=== PATIENT | female | born 1945 | race Caucasian/White ===

== ENCOUNTER → 2020-09-23 09:38 | Outpatient (BNVA) | payer MEDICARE, OTHER, MEDICAID, SELFPAY | PROVIDERS: Referring Provider Nurse Practitioner Family; Visit Provider Internal Medicine | DX: E03.9 Hypothyroidism, unspecified (principal); E05.00 Thyrotoxicosis with diffuse goiter without thyrotoxic crisis or storm; E06.3 Autoimmune thyroiditis; I10 Essential (primary) hypertension; R79.89 Other specified abnormal findings of blood chemistry | CPT/HCPCS: 83516; 84439; 84443; 84480; 86376; 99204 ==

== ENCOUNTER 2020-09-23 10:39 | Outpatient (CLI) | payer MEDICARE, OTHER, MEDICAID, SELFPAY ==
[2020-09-23 12:59] LABS: Thyroid Stimulating Hormone 3.55 uIU/mL (0.27-4.20)
[2020-09-23 18:35] LABS: Free T4 Free Thyroxine 1.79 ng/dL (0.82-1.77)
[2020-09-24 07:57] LABS: T3 Total 138 ng/dL (76-181)
[2020-09-24 13:04] LABS: Thyroid Peroxidase Antobodies 29 IU/mL (<9)
[2020-09-26 22:13] LABS: TSH Receptor Binding Antibody <1.00 IU/L (< OR = 2.00)
== END 2020-09-23 10:40 | disposition home or self-care (01) ==
PROVIDERS: Visit Provider Internal Medicine
DX: E03.9 Hypothyroidism, unspecified (principal); R79.89 Other specified abnormal findings of blood chemistry; E05.00 Thyrotoxicosis with diffuse goiter without thyrotoxic crisis or storm
CPT/HCPCS: 83516; 84439; 84443; 84480; 86376

== ENCOUNTER → 2020-10-27 11:26 | Outpatient (BNVA) | payer MEDICARE, OTHER, MEDICAID, SELFPAY | PROVIDERS: PCP Nurse Practitioner Family; Visit Provider Internal Medicine Cardiovascular Disease | DX: I10 Essential (primary) hypertension (principal); R06.00 Dyspnea, unspecified | CPT/HCPCS: 80048; 83735; 83880 ==

== ENCOUNTER 2020-12-02 12:11 | Outpatient (CLI) | payer MEDICARE, OTHER, MEDICAID, SELFPAY ==
--- NOTE | 2020-12-02 12:22 | USCV_ITS ---
Lenny Myers Age: 75 Gender: F : 1945 Exam Date: 12/02/2020 13:08 Ordering Phys: Irma Mahajan MD ([email or web address]) Technologist: Kylee Arellano [place]am Location[place] [facility] [place]ication: Dyspnea BP: 144 / 89 HR: 60 Rhythm: Sinus Technical Quality: Adequate MEASUREMENTS (Male / Female) Normal Values 2D ECHO LV Diastolic Diameter PLAX 3.6 cm 4.2 - 5.9 / 3.9 - 5.3 cm LV Systolic Diameter PLAX 2.6 cm IVS Diastolic Thickness 1.3 cm 0.6 - 1.0 / 0.6 - 0.9 cm IVS Systolic Thickness 1.3 cm LVPW Diastolic Thickness 1.2 cm 0.6 - 1.0 / 0.6 - 0.9 cm LVPW Systolic Thickness 1.6 cm LVOT Diameter 2.0 cm LV Ejection Fraction 2D Teich 55.2 % LV Ejection Fraction MOD 2C 58.0 % LV Ejection Fraction 2C AL 56.6 % LA Diameter 2.6 cm LA Width 2.5 cm LA Height 3.5 cm RA Width 2.5 cm RA Height 4.0 cm Aorta at Sinotubular Diameter 2.2 cm M-MODE LV Diastolic Diameter MM 4.3 cm 4.2 - 5.9 / 3.9 - 5.3 cm LV Systolic Diameter MM 2.6 cm LV Ejection Fraction MM Teich 69.3 % IVS Diastolic Thickness MM 1.2 cm 0.6 - 1.0 / 0.6 - 0.9 cm IVS Systolic Thickness MM 1.4 cm LVPW Diastolic Thickness MM 0.9 cm 0.6 - 1.0 / 0.6 - 0.9 cm LVPW Systolic Thickness MM 1.1 cm Aortic Annulus Diameter 2.8 cm LA Ao Ratio MM 0.9 MV E Point Septal Separation 0.3 cm DOPPLER AV Peak Velocity 141.0 cm/s LVOT Peak Velocity 99.3 cm/s AV Area Cont Eq vti 2.0 cm squared AV Area Cont Eq pk 2.2 cm squared MV Area PHT 7.9 cm squared Mitral E to A Ratio 1.8 MV E' Velocity 39.5 cm/s Mitral E to MV E' Ratio 10.0 Mitral E to LV E' Lateral Ratio 8.8 Mitral E to LV E' Septal Ratio 11.6 TR Peak Velocity 233.7 cm/s TR Peak Gradient 21.8 mmHg Right Atrial Pressure 3.0 mmHg Pulmonary Artery Systolic Pressu 24.8 mmHg PV Peak Velocity 64.0 cm/s RV Acceleration Time 0.1 s RV Ejection Time 0.3 s RV AcT/ET 0.2 FINDINGS Left Ventricle Normal left ventricular size, increased wall thickness and systolic function with no regional wall motion abnormalities. Left ventricular ejection fraction is estimated at 60 %. Normal diastolic function. Right Ventricle Normal right ventricular size and systolic function. Right Atrium Normal right atrial size. Left Atrium Normal left atrial size. Mitral Valve Mildly thickened mitral valve. No mitral valve stenosis. Trace mitral valve regurgitation. Aortic Valve Aortic valve not well visualized. Probably trileaflet aortic valve. No aortic valve stenosis. No aortic valve regurgitation. Tricuspid Valve Structurally normal tricuspid valve. Trace to mild tricuspid valve regurgitation. Pulmonic Valve Pulmonic valve not well visualized. Trace pulmonary valve regurgitation. Pericardium No pericardial effusion. Aorta Normal size aortic root and proximal ascending aorta. CONCLUSIONS 1. Normal left ventricular size, increased wall thickness and systolic function with no regional wall motion abnormalities. Left ventricular ejection fraction is estimated at 60 %. Normal diastolic function. 2. Normal right ventricular size and systolic function. 3. No significant valvular abnormality. 4. No prior similar studies to compare. Irma Mahajan MD (Electronically Signed) Final Date: 06 December 2020 23:01 S
== END 2020-12-02 12:12 | disposition home or self-care (01) ==
LOC: US 12:12
PROVIDERS: PCP Nurse Practitioner Family; Visit Provider Internal Medicine Cardiovascular Disease
DX: R06.00 Dyspnea, unspecified (principal)
CPT/HCPCS: 93306

== ENCOUNTER 2020-12-22 11:30 | Outpatient (CLI) | payer MEDICARE, OTHER, MEDICAID, SELFPAY ==
[2020-12-22 12:40] LABS: Free T4 Free Thyroxine 1.68 ng/dL (0.82-1.77)
== END 2020-12-22 11:31 | disposition home or self-care (01) ==
PROVIDERS: PCP Nurse Practitioner Family; Visit Provider Internal Medicine
DX: E03.9 Hypothyroidism, unspecified (principal); I10 Essential (primary) hypertension
CPT/HCPCS: 36415; 84439; 99215

== ENCOUNTER → 2022-04-07 13:39 | Outpatient (BNVA) | payer MEDICARE, OTHER, MEDICAID, SELFPAY | PROVIDERS: PCP Nurse Practitioner Family; Visit Provider Nurse Practitioner Family | DX: I10 Essential (primary) hypertension (principal); F17.210 Nicotine dependence, cigarettes, uncomplicated | CPT/HCPCS: 99213 ==

== ENCOUNTER 2022-12-16 11:36 | Emergency (ER) | payer MEDICARE, OTHER, MEDICAID, SELFPAY ==
[2022-12-16] VITALS (52 sets, daily range): BP systolic 164–188; BP diastolic 80–91; PULSE 60–88; RESP 16–29; O2SAT 79–97; BMI 26.4
--- NOTE | 2022-12-16 11:37 | ED_ITS ---
HPI - General Adult General: Chief complaint: Neuro Symptoms/Deficit Stated complaint: POSSIBLE STROKE 10 DAYS AGO Time Seen by Provider: 12/16/22 11:37 History of Present Illness: Ms. Myers is a 77-year-old lady with significant past medical history of CAD, hypertension, diabetes, thyroid disorder presenting to the emergency department for concern for strokelike symptoms. She endorses an episode of acute onset left-sided sharp headache approximately 10 days ago associated with hearing loss in the left ear. She reports that the headache improved however the hearing loss has remained constant. She subsequently has developed left eye blurred vision and headache is returned. Intensity symptoms is moderate. She denies other neurologic symptoms. She denies similar episodes in the past. She was seen at primary care and told to go home to her house and call 911 and be brought here for further evaluation for stroke. No other specific changes in health, exacerbating, or alleviating factors identified. Onset (ago): day(s) Location: head and eyes Severity: moderate Quality: aching Pain Consistency: constant Relieving factors: none Exacerbating factors: none Associated symptoms: Reports headache(s) and other Review of Systems General: Reports: 10 or more systems reviewed and unremarkable except in HPI and below Neuro: Reports: headache(s) PFSH ED PFSH: Medical History Atherosclerosis of coronary artery Benign hypertension COPD (chronic obstructive pulmonary disease) Diabetes Hyperlipidemia Surgical History History of appendectomy History of heart artery stent History of tubal ligation Family History Mother , she at the age of 83 Diabetes Sister , at the age of 87 Cancer pancreatic cancer Sister , at the age of 23 Cancer had ovarian cancer Social History Smoking and tobacco status: current every day smoker cigarettes Packs smoked per day: 1 Alcohol intake: never Current gender identity: Female Female Reproductive History: Spontaneous abortions: No Physical Exam Const: COMMON NORMALS: alert GENERAL APPEARANCE: cooperative and well developed HENMT: COMMON NORMALS: normocephalic, atraumatic, external ears normal, EAC's normal and TM's normal bilaterally HEAD & SCALP: normocephalic and atraumatic EXTERNAL EAR: Yes external ears normal EXTERNAL AUDITORY CANAL: EAC's normal TYMPANIC MEMBRANE: TM's normal bilaterally THROAT: posterior oropharynx normal OTHER: Inflamed appearing symmetric red papular type lesions on the inferior aspect of the tongue. There is no distortion of anatomy or fullness in the inferior structures. Eye: COMMON NORMALS: conjunctivae normal CONJUNCTIVA: Yes conjunctivae normal SCLERA: sclerae normal OTHER: EOM's intact. Normal fluorescein exam. Unable to obtain IOP secondary to equipment problem. Neck/C-Spine: COMMON NORMALS: supple GENERAL: Yes trachea midline Resp: COMMON NORMALS: normal respiratory effort EFFORT & INSPECTION: Yes able to speak in complete sentences Cardio: COMMON NORMALS: regular rate and regular rhythm RATE: regular rate RHYTHM: regular rhythm GI: COMMON NORMALS: Soft to palpation PALPATION: Yes Soft to palpation and No Tenderness to palpation present (GI) Extremity: GENERAL: Yes normal exam except as noted and No edema Neuro: COMMON NORMALS: moves all extremities SENSORIUM/ORIENTATION: Yes alert and No Orientation impaired OTHER: Subjective left eye blurriness and left ear hearing loss. No visual field cut. NIHSS 0 Psych: COMMON NORMALS: mental status grossly normal and Normal thought process present THOUGHT PROCESS: Normal thought process present Course Vital Signs: Vital signs: Vital Signs Pulse Rate 76 12/16/22 15:01 Respiratory Rate 18 12/16/22 15:01 Blood Pressure 179/91 12/16/22 15:45 Pulse Oximetry 96 12/16/22 15:01 Oxygen Delivery Me thod 12/16/22 14:[address] [facility] - General Adult Medical Decision Making 77-year-old lady presenting with headache and visual disturbance starting 10 days ago. Exam as above. Patient is nontoxic. EKG notable for sinus rhythm with left axis deviation and interventricular conduction delay, there is nonspecific ST segment abnormalities, no STEMI. Labs notable for leukocytosis and hemoconcentration. Metabolic panel without acute derangement to explain symptoms. Negative range 2-hour delta troponin. No UTI. Chest x-ray with no lobar consolidation or pneumothorax. CTA demonstrates no intracranial hemorrhage or mass. There is mild to moderate vascular disease without flow-limiting stenosis or acute large vessel occlusion. There are prior strokes. Incidental findings discussed with patient. The patient does have paranasal sinuses with evidence of acute sinusitis. On examination after this finding she does have tenderness on the sinuses and reports perhaps similar symptoms with history of sinusitis years ago. On ophthalmic exam I do not appreciate acute pathology to explain the patient's blurry vision. I was unable to obtain intraocular pressures unfortunately due to equipment issue, however due to duration of symptoms I do not believe the patient has ophthalmologic emergency requiring emergent consult in the emergency department. Patient improved with IV fluids. I do not see any evidence of cavernous sinus thrombosis or deep spreading infection. Plan to treat for sinusitis and have outpatient follow-up with ophthalmology and ENT. The results of ED evaluation were discussed with the patient including prescriptions and/or symptomatic cares (if applicable) including appropriate and responsible use, followup plan, and return precautions. The patient verbalized understanding and felt safe for discharge. Medical Records I reviewed the patient's medical records. Lab Data I reviewed the patient's lab results. 12/16/22 12:02 12/16/22 12:02 Radiology Impressions Chest X-Ray 12/16/22 11:47 IMPRESSION: No acute chest abnormality. Head/Neck CTA 12/16/22 11:47 IMPRESSION: 1. No evidence of intracranial hemorrhage or mass effect. 2. Less than 50% ICA stenosis bilaterally. 3. Moderate calcified atheromatous disease RIGHT subclavian artery origin. Subclavian artery remains patent. 4. RIGHT dominant vertebral artery. Both vertebral arteries are patent to the basilar junction. 5. No flow-limiting intracranial stenosis. 6. Persistent LEFT TREE FARMER. 7. Diffuse fluid in the paranasal sinuses compatible with acute sinusitis. Sma ll amount of fluid in the mastoid tips. 8. Chronic infarct with encephalomalacia about the anterior horn LEFT lateral ventricle. Laboratory Results WBC 15.7 10^3/uL (4.0-10.0) H 12/16/22 12:02 RBC 5.50 10^6/uL (4.1-5.3) H 12/16/22 12:02 Hgb 15.0 g/dL (11.5-15.3) 12/16/22 12:02 Hct 47.7 % (37.0-47.0) H 12/16/22 12:02 MCV 86.7 fl (81-99) 12/16/22 12:02 MCH 27.3 pg (28.0-34.0) L 12/16/22 12:02 MCHC 31.4 g/dL (30.0-36.0) 12/16/22 12:02 RDW 13.5 % (12.1-15.1) 12/16/22 12:02 Plt Count 284 10^3/cmm (130-400) 12/16/22 12:02 MPV 10.7 fL (7.4-10.4) H 12/16/22 12:02 Neut % (Auto) 87.2 % 12/16/22 12:02 Lymph % (Auto) 6.7 % 12/16/22 12:02 [place] % (Auto) 4.5 % 12/16/22 12:02 Eos % (Auto) 0.4 % 12/16/22 12:02 Baso % (Auto) 0.6 % 12/16/22 12:02 Neut # (Auto) 13.69 10^3/uL (1.8-7.7) H 12/16/22 12:02 Lymph # (Auto) 1.1 10^3/uL (0.8-4.8) 12/16/22 12:02 [place] # (Auto) 0.7 10^3/uL (0.2-0.9) 12/16/22 12:02 Eos # (Auto) 0.1 10^3/uL (0.0-0.8) 12/16/22 12:02 Baso # (Auto) 0.1 10^3/uL (0.0-0.1) 12/16/22 12:02 Nucleated RBC % (auto) 0 % 12/16/22 12:02 Nucleated RBCs # 0.0 /100WBC 12/16/22 12:02 ESR 8 mm/hr (0-15) 12/16/22 12:02 Sodium 141 mmol/L (136-145) 12/16/22 12:02 Potassium 4.5 mmol/L (3.5-5.1) 12/16/22 12:02 Chloride 103 mmol/L (98-107) 12/16/22 12:02 Carbon Dioxide 29 mmol/L (22-29) 12/16/22 12:02 Anion Gap 13.5 (5-19) 12/16/22 12:02 BUN 10 mg/dL (8-23) 12/16/22 12:02 Creatinine 0.6 mg/dL (0.5-0.9) 12/16/22 12:02 GFR Calculation Not Reportable 12/16/22 12:02 Glucose 156 mg/dL (65-115) H 12/16/22 12:02 POC Glucose 164 mg/dL (70-110) H 12/16/22 11:43 Calculated Osmolality 294 mOsm/kg (285-295) 12/16/22 12:02 Calcium 9.0 mg/dL (8.5-10.5) 12/16/22 12:02 Magnesium 2.2 mg/dL (1.7-2.3) 12/16/22 12:02 Total Bilirubin 0.5 mg/dL (0.15-1.2) 12/16/22 12:02 AST 16 U/L (0-32) 12/16/22 12:02 ALT 14 U/L (0-33) 12/16/22 12:02 Alkaline Phosphatase 87 U/L (35-105) 12/16/22 12:02 Troponin T Baseline 17 ng/L (0-10) H 12/16/22 12:02 Troponin T 120 Minute 14.96 ng/L (0-10) H 12/16/22 14:00 Delta Troponin T -2.04 ABS# (0-10) L 12/16/22 14:00 C-Reactive Protein 3.0 mg/L (0.0-4.9) 12/16/22 12:02 Total Protein 6.4 g/dL (6.6-8.7) L 12/16/22 12:02 Albumin 3.7 g/dL (3.5-5.2) 12/16/22 12:02 Globulin 2.7 g/dL (1.3-4.6) 12/16/22 12:02 TSH 1.05 uIU/mL (0.27-4.20) 12/16/22 12:02 Urine Color Light yellow (Yellow) 12/16/22 12:20 Urine Appearance Clear (CLEAR) 12/16/22 12:20 Urine pH 6.5 (5-7) 12/16/22 12:20 Ur Specific [place] 1.010 (1.005-1.030) 12/16/22 12:20 Urine Protein Neg (Negative) 12/16/22 12:20 Urine Glucose (UA) Norm (Normal) 12/16/22 12:20 Urine Ketones Negative (Negative) 12/16/22 12:20 Urine Blood Neg (Negative) 12/16/22 12:20 Urine Nitrate Negative (Negative) 12/16/22 12:20 Urine Bilirubin Neg (Negative) 12/16/22 12:20 Urine Urobilinogen Norm mg/dL (Negative) 12/16/22 12:20 Ur Leukocyte Esterase Negative (Negative) 12/16/22 12:20 Discharge Plan Discharge Patient Disposition: Home Clinical Impression: Acute sinus infection, Unilateral hearing loss, Blurry vision, left eye Condition: Stable Prescriptions: New amoxicillin-pot clavulanate 875-125 mg tablet 1 tab PO BID Qty: 20 0RF No Action docusate sodium 100 mg capsule 100 - 200 mg PO DAILY PRN (Reason: Constipation) zinc gluconate 50 mg tablet 50 mg PO DAILY cholecalciferol (vitamin D3) 25 mcg (1,000 unit) capsule 25 mcg PO DAILY furosemide 20 mg tablet 20 mg PO DAILY PRN (Reason: edema) Qty: 30 4RF aspirin 81 mg tablet,delayed release (DR/EC) 81 mg PO DAILY nitroglycerin 0.4 mg tablet, sublingual 0.4 mg sublingual Q5M PRN (Reason: Chest Pain) Rx Instructions: do not exceed 3 doses per episode atorvastatin 80 mg tablet 80 mg PO DAILY Januvia 100 mg tablet 100 mg PO DAILY hydrochlorothiazide 50 mg tablet 25 mg PO DAILY Ranjit Pollard U-100 Insulin 100 unit/mL (3 mL) insulin pen 20 unit SUBCUT .qpm levothyroxine 100 mcg tablet 112 mcg PO DAILY isosorbide mononitrate 30 mg tablet extended release 24 hr 90 mg PO DIRECTED Qty: 90 6RF Rx Instructions: Take 60mg (2 tabs) in AM and 30mg (1 tab) in PM valsartan 160 mg tablet 160 mg PO BID Qty: 180 3RF metoprolol tartrate 25 mg tablet 25 mg PO BID albuterol sulfate 90 mcg/actuation HFA aerosol inhaler 1 - 2 puff INHALATION Q4H PRN (Reason: Shortness Of Breath Or Wheezing) Discharge Orders: Discharge ED (Routine); Ordered 12/16/22 Ordered By: Bear Mai Referrals: Starr Aguilar [Primary Care Provider] - Discharge Diet: Usual diet Discharge Activity: Increase activity as tolerated Activity Restrictions/Additional Instructions: Thank you for visiting the emergency department. You were seen and evaluated for headache with hearing loss and visual disturbance. The exact cause of your symptoms is unclear however may be related to sinus infection. I will treat this with antibiotics. Please follow-up with an pillowcase cleaner. If hearing loss persists despite treatment I recommend follow-up with a ENT specialist. Please also follow-up with your primary care provider. Return to the emergency department for uncontrolled symptoms, new or severe headache, any new neurologic symptoms, or anything else that you are concerned about and feel needs emergency department evaluation. Coding Level of Care Code ED Clinical Marketing Manager for Terrell Arceo
--- NOTE | 2022-12-16 11:47 | CT_ITS ---
WS: [id number] CTA HEAD AND NECK TECHNIQUE: Contrast enhanced CTA of the head and neck with coronal and sagittal reformatted images an d maximum intensity projection (MIP) images. NASCET criteria utilized. CLINICAL INFORMATION: stroke like symptoms COMPARISON: None. DLP: 1029.[address] scans at [facility] use at least one of these dose optimization techniques: automated e xposure control; mA and/or kV adjustment per patient size (includes targeted exams where dose is matc hed to clinical indication); or iterative reconstruction. FINDINGS: Noncontrast CT of the head demonstrates no evidence of intracranial hemorrhage or mass effe ct. Chronic infarct involving the anterior horn LEFT lateral ventricle with encephalomalacia. Vascula r calcification. Mild mucosal thickening in the mastoid air cells. Fluid in the paranasal sinuses com patible with sinusitis. Normal posterior nasopharynx. Normal parapharyngeal fat. Intracranial vascula r calcification. Mild small vessel changes. Mild parenchymal volume loss. RIGHT: RIGHT common carotid artery is patent. Moderate calcified atheromatous plaque RIGHT carotid bu lb extending into the ICA. Less than 50% ICA stenosis. Retropharyngeal course RIGHT cervical ICA. Cer vical ICA is patent to the skull base. LEFT: LEFT common carotid artery is patent. Calcified atheromatous plaque LEFT carotid bulb extending into the ICA. Less than 50% stenosis. Retropharyngeal course to the LEFT cervical ICA. LEFT ICA is p atent to the skull base. INTRACRANIAL CTA: RIGHT dominant vertebral artery. Smaller but patent LEFT vertebral artery. Basilar artery is patent. Normal vascularity to the FAN BALANCER territory bilaterally. Persistent LEFT FAN BALANCER. Both ICAs are patent at the skull base. Tortuous cavernous carotid arteries. Cavernous carotid calcif ication. Normal vascularity to the AIYANA territory. Small RIGHT A1 segment is patent. No evidence of fl ow-limiting stenosis. Proximal M1 segments are patent. Normal vascularity to the MCA territory bilate rally. Moderate calcified stenosis of the RIGHT subclavian artery origin which remains patent. Moderate calc ified atheromatous plaque aortic arch. LEFT subclavian artery is patent. Advanced emphysematous cristina es in the lung apices.Parotid glands appear normal. Submandibular glands appear normal. Airway is pat ent. CT/CT angio headneck* [id number] IMPRESSION: 1. No evidence of intracranial hemorrhage or mass effect. 2. Less than 50% ICA stenosis bilaterally. 3. Moderate calcified atheromatous disease RIGHT subclavian artery origin. Starr bclavian artery remains patent. 4. RIGHT dominant vertebral artery. Both vertebral arteries are patent to the basilar junction. 5. No flow-limiting intracranial stenosis. 6. Persistent LEFT FAN BALANCER. 7. Diffuse fluid in the paranasal sinuses compatible with acute sinusitis. Sma ll amount of fluid in the mastoid tips. 8. Chronic infarct with encephalomalacia about the anterior horn LEFT lateral ventricle.
--- NOTE | 2022-12-16 11:47 | XR_ITS ---
WS: [id number] XR chest 1V portable [id number] REASON FOR EXAM: stroke like symptoms FINDINGS: Mild tortuosity the thoracic aorta. Normal heart size. Calcified granulomatous disease in both hemithoraces. Reticular interstitial lung opacities in both lower lung arias which appear to be chronic. No acute pulmonary parenchymal or pleural abnormality identified. Mild changes of degenerative spondylosis in the mid and lower thoracic spine. XR/XR chest 1V portable [id number] IMPRESSION: No acute chest abnormality.
[2022-12-16 11:49] LABS: Glucose Point of Care 164 mg/dL (70-110)
--- NOTE | 2022-12-16 11:57 | ECG_ITS ---
[facility] Test Date: 2022-12-16 Pat Name: Lenny Myers Department: Room: Gender: Female Record Retrieval Specialist: : 1945 Requested By: Bear Mai Order Number: [id number] Tianna MD: RAUL MALDONADO Measurements Intervals [place] Rate: 65 P: 49 MI: 134 QRS: -41 QRSD: 114 T: 110 QT: 405 QTc: 423 Interpretive Statements SINUS RHYTHM POSSIBLE LEFT ATRIAL ENLARGEMENT [-0.1mV P-WAVE IN V1/V2] LEFT AXIS DEVIATION [QRS AXIS < -30] LEFT VENTRICULAR HYPERTROPHY AND ST-T CHANGE [VOLTAGE CRITERIA PLUS ST/T ABNORMALITY] PROBABLE INFERIOR MYOCARDIAL INFARCTION , OF INDETERMINATE AGE [35 ms Q WAVE IN II/aVF] No previous ECG available for comparison Electronically Signed On 12-17-2022 23:43:59 CDT by RAUL MALDONADO [id number]
[2022-12-16 12:16] LABS: Basophils # 0.1 10^3/uL (0.0-0.1); Basophils % 0.6 %; Eosinophils # 0.1 10^3/uL (0.0-0.8); Eosinophils % 0.4 %; Hematocrit 47.7 % (37.0-47.0); Lymphocytes # 1.1 10^3/uL (0.8-4.8); Lymphocytes % 6.7 %; Mean Corpuscular HGB Conc 31.4 g/dL (30.0-36.0); Mean Corpuscular Hemoglobin 27.3 pg (28.0-34.0); Mean Corpuscular Volume 86.7 fl (81-99); Mean Platelet Volume 10.7 fL (7.4-10.4); Monocytes # 0.7 10^3/uL (0.2-0.9); Monocytes % 4.5 %; Neutrophils # 13.69 10^3/uL (1.8-7.7); Neutrophils % 87.2 %; Nucleated Red Blood Cells % 0 %; Platelet Count 284 10^3/cmm (130-400); Red Cell Distribution Width 13.5 % (12.1-15.1); White Blood Count 15.7 10^3/uL (4.0-10.0)
[2022-12-16 12:23] LABS: Erythrocyte Sedimentation Rate 8 mm/hr (0-15)
[2022-12-16] MEDS: sodium chloride 0.9% 1,000 ML 999 ML IV (12:44)
[2022-12-16 12:45] LABS: Alanine Aminotransferase 14 U/L (0-33); Albumin Level 3.7 g/dL (3.5-5.2); Alkaline Phosphatase 87 U/L (35-105); Anion Gap 13.5 (5-19); Aspartate Amino Transferase 16 U/L (0-32); Blood Urea Nitrogen 10 mg/dL (8-23); Carbon Dioxide 29 mmol/L (22-29); Chloride 103 mmol/L (98-107); Creatinine Clr Calc Pharmacy 50.2786; Globulin 2.7 g/dL (1.3-4.6); Glucose 156 mg/dL (65-115); Magnesium 2.2 mg/dL (1.7-2.3); Osmolality Calculated 294 mOsm/kg (285-295); Potassium 4.5 mmol/L (3.5-5.1); Sodium 141 mmol/L (136-145); Thyroid Stimulating Hormone 1.05 uIU/mL (0.27-4.20); Total Bilirubin 0.5 mg/dL (0.15-1.2); Total Protein 6.4 g/dL (6.6-8.7)
[2022-12-16 13:00] LABS: Add Urine Microscopic? NO; Charge for UA Resulting for Rev
[2022-12-16 13:02] LABS: Troponin(5th) Baseline 17 ng/L (0-10)
[2022-12-16 13:07] LABS: Bilirubin Urine Neg (Negative); Blood Urine Neg (Negative); Glucose Urine UA Norm (Normal); Ketones Urine Negative (Negative); Leukocyte Esterase Urine Negative (Negative); Nitrate Urine Negative (Negative); Protein Urine Neg (Negative); Urine Appearance Clear (CLEAR); Urine Color Light yellow (Yellow); Urobilinogen Urine Norm (Negative); pH Urine 6.5 (5-7)
[2022-12-16] MEDS: iohexol 350 mg/mL 500 mL Btl (per mL) IV (13:10)
[2022-12-16 14:30] LABS: Troponin 5 2HR 14.96 ng/L (0-10)
[2022-12-16 14:31] LABS: Troponin 5 2HR Delta -2.04 ABS# (0-10)
--- NOTE | 2022-12-16 14:41 | ECG_ITS ---
[facility] Test Date: 2022-12-16 Pat Name: Lenny Myers Department: Room: Gender: Female Packaging Specialist: : 1945 Requested By: Bear Mai Order Number: [id number] Reading MD: RAUL MALDONADO Measurements Intervals [place] Rate: 63 P: 54 LA: 148 QRS: -41 QRSD: 111 T: 106 QT: 399 QTc: 411 Interpretive Statements SINUS RHYTHM POSSIBLE LEFT ATRIAL ENLARGEMENT [-0.1mV P-WAVE IN V1/V2] LEFT AXIS DEVIATION [QRS AXIS < -30] LEFT VENTRICULAR HYPERTROPHY AND ST-T CHANGE [VOLTAGE CRITERIA PLUS ST/T ABNORMALITY] POSSIBLE INFERIOR MYOCARDIAL INFARCTION , OF INDETERMINATE AGE [30 ms Q WAVE IN II/aVF] Compared to ECG 12/16/2022 12:14:54 No significant changes Electronically Signed On 12-17-2022 23:43:12 CDT by RAUL MALDONADO [id number]
[2022-12-16] MEDS: fluorescein 1 mg Strip EYE-LEFT (15:13)
[2022-12-16] MEDS: tetracaine 0.5% Op Soln 4 mL Btl 1 DROP EYE-BOTH (15:13)
== END 2022-12-16 15:54 | disposition home or self-care (01) ==
PROVIDERS: Emergency Provider Emergency Medicine; PCP Nurse Practitioner Family
DX: J01.90 Acute sinusitis, unspecified (principal); H91.92 Unspecified hearing loss, left ear; H53.8 Other visual disturbances; Z79.82 Long term (current) use of aspirin; Z79.4 Long term (current) use of insulin; I25.10 Atherosclerotic heart disease of native coronary artery without angina pectoris; I10 Essential (primary) hypertension; J44.9 Chronic obstructive pulmonary disease, unspecified; E11.9 Type 2 diabetes mellitus without complications; E78.5 Hyperlipidemia, unspecified; F17.210 Nicotine dependence, cigarettes, uncomplicated
CPT/HCPCS: 36416; 70496; 70498; 71045; 80053; 81003; 82962; 83735; 84443; 84484; 85025; 85651; 86140; 93005; 99285; J7030; Q9967

== ENCOUNTER 2023-04-12 15:32 | Emergency (ER) | payer MEDICARE, OTHER, MEDICAID, SELFPAY ==
[2023-04-12] VITALS (7 sets, daily range): BP systolic 157–184; BP diastolic 65–95; PULSE 55–68; RESP 16–24; TEMP 36.8; O2SAT 98–99
--- NOTE | 2023-04-12 15:34 | CTR_ITS ---
PROCEDURE INFORMATION: Exam: CT Head Without Contrast Exam date and time: 04/12/2023 4:44 PM Age: 77 years old Clinical indication: Dizziness; Additional info: Dizzyness w n/v TECHNIQUE: Imaging protocol: Computed tomography of the head without contrast. REPORTING DATA: Count of CT and Cardiac NM exams in prior 12 months: This patient has received [address] and 0 known cardiac nuclear medicine studies in the 12 months prior to the current study. COMPARISON: CT angio headneck* [id number] 12/16/2022 1:07 PM RADIATION DOSE METRICS: Total DLP (mGy-cm): 1043.28 FINDINGS: Brain: Chronic lacunar infarctions left anterior limb internal capsule white matter and inferior lentiform nucleus. Moderate hypoattenuating foci are noted in the anterior lateral ventricular periventricular white matter bilaterally. No intracranial hemorrhage. No mass or acute cortical infarction identified. Ventricles: Prominence of the ventricular system and subarachnoid spaces is consistent with the patient's age of 77 years. Bilateral choroid plexus xanthogranulomatous changes, normal variant. Mild ex vacuo enlargement of the left lateral ventricular body and frontal horn. Paranasal sinuses: Visualized sinuses are unremarkable. No fluid levels. Mastoid air cells: Visualized mastoid air cells are well aerated. Orbital cavities: Bilateral prior cataract surgery with lens replacements. Bones/joints: No acute abnormality. No acute fracture. Soft tissues: Unremarkable. Vasculature: Atherosclerotic calcifications are present involving the carotid artery siphons and vertebral arteries bilaterally. CT/CT head wo con* [id number] IMPRESSION: 1. Chronic lacunar infarctions left capsular white matter and inferior lentiform nucleus. 2. Age appropriate supratentorial and infratentorial atrophy. 3. Moderate chronic white matter microvascular ischemic disease. 4. No acute intracranial abnormality identified.
--- NOTE | 2023-04-12 15:34 | XR_ITS ---
WS: [id number] XR chest 1V portable [id number] REASON FOR EXAM: dyspnea/cough FINDINGS: Moderate tortuosity and ectasia of the thoracic aorta without aneurysmal dilatation. Heart size is at the upper limits of normal. Calcified granulomatous disease in both hemithoraces. Increased lucency in the upper lung arias likely indicative of central lobar emphysema. There are reticular interstitial lung opacities which are also seen on 12/16/2022 and presumed to be c hronic. There is increased opacity with in the lower medial lung field with obscuration of the dome of the ri ght hemidiaphragm. XR/XR chest 1V portable [id number] IMPRESSION: Opacity in the right lower lung as above. Cannot readily differentiate between atelectasis and pneumonitis. No recent examination for comparison. The abnormal ity was not present on 12/06/2022. Chronic interstitial changes in the lower lung arias and likely central lobar emphysema.
--- NOTE | 2023-04-12 15:40 | ED_ITS ---
Documented by User: Alek Zimmerman DO 04/17/23 06:36 HPI - Neuro Symptoms/Deficit General: Chief Complaint: Dizziness Stated Complaint: Dizzy, N/V Time Seen by Provider: 04/12/23 15:33 Source: patient Mode of arrival: ambulatory History of Present Illness: 77-year-old female presents emergency room via EMS. She was sitting at a table got lightheaded and dizzy nauseous its mostly passed at this point. She is awake and alert answers questions appropriately. She denies any weakness. No chest pain no shortness of breath she is chronically on oxygen at 3 L/min for COPD. She has a history of diabetes mellitus and coronary disease no previous history of stroke she is not on any anticoagulants. Onset (ago): minute(s) History of same: No Severity: mild Quality: weak and other Relieving factors: none Context: sudden onset Associated symptoms: Reports nausea, vertigo and vomiting; Deny chest pain, cough, diaphoresis, fevers/chills, headache(s), anorexia, malaise, seizures, short of breath, syncope, tingling or weakness Review of Systems Const: Denies: fever(s), chills, fatigue, malaise or diaphoresis Card: Denies: chest pain, palpitations, irregular heart rhythm or syncope Resp: Denies: dyspnea, productive cough or non-productive cough GI: Reports: nausea and vomiting; Denies: abdominal pain : Denies: flank pain, difficulty voiding, dysuria, urinary frequency or urinary urgency Musc: Denies: neck pain or back pain Skin/Breast: Denies: rash or pruritus Neuro: Reports: vertigo; Denies: headache(s) PFS ED PFSH: Medical History Atherosclerosis of coronary artery Benign hypertension COPD (chronic obstructive pulmonary disease) Diabetes Hyperlipidemia Surgical History History of appendectomy History of heart artery stent History of tubal ligation Family History Mother , she at the age of 83 Diabetes Sister , at the age of 87 Cancer pancreatic cancer Sister , at the age of 23 Cancer had ovarian cancer Social History Smoking and tobacco status: current every day smoker cigarettes Packs smoked per day: 1 Alcohol intake: never Substance/Drug Use: never Current gender identity: Female Female Reproductive History: Spontaneous abortions: No NIH stroke score NIHSS: Level Of Consciousness - 1a: 0 Level Of Consciousness Questions - 1b: Both Correct Level Of Consciousness Commands - 1c: Both Correct Best Gaze - 2: Normal Visual Luna - 3: No Visual Loss Facial Palsy - 4: Normal Motor Arm Right - 5: No Drift Motor Arm Left - 5: No Drift Motor Leg Right - 6: No Drift Motor Leg Left - 6: No Drift Limb Ataxia - 7: Absent Sensory - 8: Normal Best Language - 9: No Aphasia Dysarthia - 10: Normal Extinction And Inattention - 11: 0 Score: Total Score: 0 Physical Exam Const: GENERAL APPEARANCE: cooperative and comfortable ORIENTATION/CONSCIOUSNESS: Yes awake, Yes oriented to person, Yes oriented to place and Yes oriented to time HENMT: COMMON NORMALS: normocephalic, atraumatic and hearing grossly normal bilaterally HEAD & SCALP: normocephalic and atraumatic Resp: COMMON NORMALS: normal respiratory effort, No retractions, No use of accessory muscles and clear to auscultation bilaterally AUSCULTATION: clear to auscultation bilaterally Cardio: COMMON NORMALS: regular rate, regular rhythm and No murmurs present (Cardio) RATE: regular rate RHYTHM: regular rhythm GI: COMMON NORMALS: Soft to palpation and No hepatosplenomegaly present AUSCULTATION: Yes normoactive bowel sounds PALPATION: Yes Soft to palpation, No Tenderness to palpation present (GI), No Guarding due to palpation present (GI) and Yes No hepatosplenomegaly present Extremity: COMMON NORMALS: normal to inspection, capillary refill normal, no clubbing, cyanosis or edema, no calf tenderness and no pedal edema Neuro: SENSORIUM/ORIENTATION: Yes oriented to person, Yes oriented to place and Yes oriented to time Skin: COMMON NORMALS: no rashes or lesions noted GENERAL SKIN EXAM: no rashes or lesions noted Course Vital Signs: Vital signs: Vital Signs Temperature 98.2 F 04/12/23 15:45 Pulse Rate 63 04/12/23 21:00 Respiratory Rate 24 H 04/12/23 21:00 Blood Pressure 184/80 07/12/23 21:00 Pulse Oximetry 99 04/12/23 21:00 Oxygen Delivery Me thod Nasal Cannula 04/12/23 21:00 Oxygen Flow Rate 3 04/12/23 21:00 MDM - Neuro Symptoms/Deficit Medical Decision Making Care signed out to Dr. Wakefield at change of shift. See final notes for diagnosis and disposition. Lab Data 04/12/23 15:40 04/12/23 15:40 Radiology Impressions Chest X-Ray 04/12/23 15:34 IMPRESSION: Opacity in the right lower lung as above. Cannot readily differentiate between atelectasis and pneumonitis. No recent examination for comparison. The abnormality was not present on 12/06/2022. Chronic interstitial changes in the lower lung luna and likely central lobar emphysema. Head CT 04/12/23 15:34 IMPRESSION: 1. Chronic lacunar infarctions left capsular white matter and inferior lentiform nucleus. 2. Age appropriate supratentorial and infratentorial atrophy. 3. Moderate chronic white matter microvascular ischemic disease. 4. No acute intracranial abnormality identified. Head/Neck CTA 04/12/23 18:22 IMPRESSION: No significant stenosis or occlusion of intracranial arteries. IMPRESSION: No significant stenosis or occlusion of neck arteries. REFERENCES: NASCET CRITERIA. The degree of stenosis in the cervical segment of the internal carotid artery is based on NASCET criteria. Normal is no stenosis. Mild is less than 50% stenosis. Moderate is 50-69% stenosis. Severe is 70% to 99% stenosis. Total occlusion is no detectable patent lumen. Laboratory Results WBC 13.3 10^3/uL (4.0-10.0) H 04/12/23 15:40 RBC 5.53 10^6/uL (4.1-5.3) H 04/12/23 15:40 Hgb 15.2 g/dL (11.5-15.3) 04/12/23 15:40 Hct 48.1 % (37.0-47.0) H 04/12/23 15:40 MCV 87.0 fl (81-99) 04/12/23 15:40 MCH 27.5 pg (28.0-34.0) L 04/12/23 15:40 MCHC 31.6 g/dL (30.0-36.0) 04/12/23 15:40 RDW 13.5 % (12.1-15.1) 04/12/23 15:40 Plt Count 264 10^3/cmm (130-400) 04/12/23 15:40 MPV 11.3 fL (7.4-10.4) H 04/12/23 15:40 Neut % (Auto) 72.7 % 04/12/23 15:40 Lymph % (Auto) 17.6 % 04/12/23 15:40 Levy % (Auto) 6.5 % 04/12/23 15:40 Eos % (Auto) 1.2 % 04/12/23 15:40 Baso % (Auto) 0.6 % 04/12/23 15:40 Neut # (Auto) 9.63 10^3/uL (1.8-7.7) H 04/12/23 15:40 Lymph # (Auto) 2.3 10^3/uL (0.8-4.8) 04/12/23 15:40 Levy # (Auto) 0.9 10^3/uL (0.2-0.9) 04/12/23 15:40 Eos # (Auto) 0.2 10^3/uL (0.0-0.8) 04/12/23 15:40 Baso # (Auto) 0.1 10^3/uL (0.0-0.1) 04/12/23 15:40 Nucleated RBC % (auto) 0 % 04/12/23 15:40 Nucleated RBCs # 0.0 /100WBC 04/12/23 15:40 Sodium 142 mmol/L (136-145) 04/12/23 15:40 Potassium 3.6 mmol/L (3.5-5.1) 04/12/23 15:40 Chloride 101 mmol/L (98-107) 04/12/23 15:40 Carbon Dioxide 28 mmol/L (22-29) 04/12/23 15:40 Anion Gap 16.6 (5-19) 04/12/23 15:40 BUN 13 mg/dL (8-23) 04/12/23 15:40 Creatinine 0.7 mg/dL (0.5-0.9) 04/12/23 15:40 GFR Calculation Not Reportable 04/12/23 15:40 Glucose 238 mg/dL (65-115) H 04/12/23 15:40 Calculated Osmolality 302 mOsm/kg (285-295) H 04/12/23 15:40 Calcium 9.4 mg/dL (8.5-10.5) 04/12/23 15:40 Total Bilirubin 0.4 mg/dL (0.15-1.2) 04/12/23 15:40 AST 13 U/L (0-32) 04/12/23 15:40 ALT 11 U/L (0-33) 04/12/23 15:40 Alkaline Phosphatase 99 U/L (35-105) 04/12/23 15:40 Troponin T Baseline 55 ng/L (0-10) H 04/12/23 15:40 Troponin T 120 Minute 48.91 ng/L (0-10) H 04/12/23 17:37 Delta Troponin T -6.09 ABS# (0-10) L 04/12/23 17:37 Total Protein 6.5 g/dL (6.6-8.7) L 04/12/23 15:40 Albumin 3.8 g/dL (3.5-5.2) 04/12/23 15:40 Globulin 2.7 g/dL (1.3-4.6) 04/12/23 15:40 Urine Color Yellow (Yellow) 04/12/23 17:25 Urine Appearance Cloudy (CLEAR) A 04/12/23 17:25 Urine pH 6 (5-7) 04/12/23 17:25 Ur Specific Citra 1.025 (1.005-1.030) 04/12/23 17:25 Urine Protein Neg (Negative) 04/12/23 17:25 Urine Glucose (UA) Trace (Normal) H 04/12/23 17:25 Urine Ketones Negative (Negative) 04/12/23 17:25 Urine Blood Neg (Negative) 04/12/23 17:25 Urine Nitrate Negative (Negative) 04/12/23 17:25 Urine Bilirubin Neg (Negative) 04/12/23 17:25 Urine Urobilinogen Norm mg/dL (Negative) 04/12/23 17:25 Ur Leukocyte Esterase 1+ (Negative) H 04/12/23 17:25 Urine RBC 0-4 /hpf (0-2) H 04/12/23 17:25 Urine WBC 5-10 /hpf (0-5) H 04/12/23 17:25 Ur Squamous Epith Cells 5-10 /hpf (0-5) H 04/12/23 17:25 Amorphous Sediment Trace /hpf 04/12/23 17:25 Urine Bacteria 1+ /hpf (NONE) H 04/12/23 17:25 Hyaline Casts 0-4 /lpf H 04/12/23 17:25 Urine Mucus 1+ /hpf 04/12/23 17:25 Discharge Plan Discharge Patient Disposition: Home Clinical Impression: Vertigo Condition: Stable Prescriptions: New Antivert 50 mg tablet 50 mg PO BID PRN (Reason: dizziness) Qty: 14 0RF No Action docusate sodium 100 mg capsule 100 - 200 mg PO DAILY PRN (Reason: Constipation) zinc gluconate 50 mg tablet 50 mg PO DAILY cholecalciferol (vitamin D3) 25 mcg (1,000 unit) capsule 25 mcg PO DAILY furosemide 20 mg tablet 20 mg PO DAILY PRN (Reason: edema) Qty: 30 4RF aspirin 81 mg tablet,delayed release (DR/EC) 81 mg PO DAILY nitroglycerin 0.4 mg tablet, sublingual 0.4 mg sublingual Q5M PRN (Reason: Chest Pain) Rx Instructions: do not exceed 3 doses per episode atorvastatin 80 mg tablet 80 mg PO DAILY Januvia 100 mg tablet 100 mg PO DAILY hydrochlorothiazide 50 mg tablet 25 mg PO DAILY Ranjit Pollard U-100 Insulin 100 unit/mL (3 mL) insulin pen 20 unit SUBCUT .qpm levothyroxine 100 mcg tablet 112 mcg PO DAILY valsartan 160 mg tablet 160 mg PO BID Qty: 180 3RF metoprolol tartrate 25 mg tablet 25 mg PO BID isosorbide mononitrate 30 mg tablet extended release 24 hr 90 mg PO DIRECTED Qty: 270 3RF Rx Instructions: Take 60mg (2 tabs) in AM and 30mg (1 tab) in PM albuterol sulfate 90 mcg/actuation HFA aerosol inhaler 1 - 2 puff INHALATION Q4H PRN (Reason: Shortness Of Breath Or Wheezing) amoxicillin-pot clavulanate 875-125 mg tablet 1 tab PO BID Qty: 20 0RF Discharge Orders: Discharge ED (Routine); Ordered 04/12/23 Ordered By: Ileana Wakefiled Referrals: Starr Aguilar [Primary Care Provider] - 1-3 days Discharge Diet: Advance as tolerated Discharge Activity: Resume usual activity Patient Instructions: Vertigo (ED), Dizziness (ED) Coding Level of Care Code ED Contract Administration Manager for Chg Fwd Documented by User: Ileana Wakefield MD 04/12/23 22:08 HPI - Neuro Symptoms/Deficit General: Chief Complaint: Dizziness Stated Complaint: Dizzy, N/V Time Seen by Provider: 04/12/23 15:33 PFSH ED PFSH: Medical History Atherosclerosis of coronary artery Benign hypertension COPD (chronic obstructive pulmonary disease) Diabetes Hyperlipidemia Surgical History History of appendectomy History of heart artery stent History of tubal ligation Family History Mother , she at the age of 83 Diabetes Sister , at the age of 87 Cancer pancreatic cancer Sister , at the age of 23 Cancer had ovarian cancer Social History Smoking and tobacco status: current every day smoker cigarettes Packs smoked per day: 1 Alcohol intake: never Substance/Drug Use: never Current gender identity: Female NIH stroke score Score: Total Score: 0 Course Vital Signs: Vital signs: Vital Signs Temperature 98.2 F 04/12/23 15:45 Pulse Rate 63 04/12/23 21:00 Respiratory Rate 24 H 04/12/23 21:00 Blood Pressure 184/80 04/12/23 21:00 Pulse Oximetry 99 04/12/23 21:00 Oxygen Delivery Me thod Nasal Cannula 04/12/23 21:00 Oxygen Flow Rate 3 04/12/23 21:00 MDM - Neuro Symptoms/Deficit Medical Decision Making Care signed out to Dr. Wakefield at change of shift. See final notes for diagnosis and disposition. Patient presents here with vertigo that is improved after Ativan. I did her her ambulate the halls and she feels much improved head CT here is normal I did offer admission she does have some weakness states she feels improved would like to go home she is to follow-up with PCP and return if worsening she understands agrees to plan. We will place her on Antivert Lab Data 04/12/23 15:40 04/12/23 15:40 Radiology Impressions Chest X-Ray 04/12/23 15:34 IMPRESSION: Opacity in the right lower lung as above. Cannot readily differentiate between atelectasis and pneumonitis. No recent examination for comparison. The abnormality was not present on 12/06/2022. Chronic interstitial changes in the lower lung luna and likely central lobar emphysema. Head CT 04/12/23 15:34 IMPRESSION: 1. Chronic lacunar infarctions left capsular white matter and inferior lentiform nucleus. 2. Age appropriate supratentorial and infratentorial atrophy. 3. Moderate chronic white matter microvascular ischemic disease. 4. No acute intracranial abnormality identified. Head/Neck CTA 04/12/23 18:22 IMPRESSION: No significant stenosis or occlusion of intracranial arteries. IMPRESSION: No significant stenosis or occlusion of neck arteries. REFERENCES: NASCET CRITERIA. The degree of stenosis in the cervical segment of the internal carotid artery is based on NASCET criteria. Normal is no stenosis. Mild is less than 50% stenosis. Moderate is 50-69% stenosis. Severe is 70% to 99% stenosis. Total occlusion is no detectable patent lumen. Laboratory Results WBC 13.3 10^3/uL (4.0-10.0) H 04/12/23 15:40 RBC 5.53 10^6/uL (4.1-5.3) H 04/12/23 15:40 Hgb 15.2 g/dL (11.5-15.3) 04/12/23 15:40 Hct 48.1 % (37.0-47.0) H 04/12/23 15:40 MCV 87.0 fl (81-99) 04/12/23 15:40 MCH 27.5 pg (28.0-34.0) L 04/12/23 15:40 MCHC 31.6 g/dL (30.0-36.0) 04/12/23 15:40 RDW 13.5 % (12.1-15.1) 04/12/23 15:40 Plt Count 264 10^3/cmm (130-400) 04/12/23 15:40 MPV 11.3 fL (7.4-10.4) H 04/12/23 15:40 Neut % (Auto) 72.7 % 04/12/23 15:40 Lymph % (Auto) 17.6 % 04/12/23 15:40 Levy % (Auto) 6.5 % 04/12/23 15:40 Eos % (Auto) 1.2 % 04/12/23 15:40 Baso % (Auto) 0.6 % 04/12/23 15:40 Neut # (Auto) 9.63 10^3/uL (1.8-7.7) H 04/12/23 15:40 Lymph # (Auto) 2.3 10^3/uL (0.8-4.8) 04/12/23 15:40 Levy # (Auto) 0.9 10^3/uL (0.2-0.9) 04/12/23 15:40 Eos # (Auto) 0.2 10^3/uL (0.0-0.8) 04/12/23 15:40 Baso # (Auto) 0.1 10^3/uL (0.0-0.1) 04/12/23 15:40 Nucleated RBC % (auto) 0 % 04/12/23 15:40 Nucleated RBCs # 0.0 /100WBC 04/12/23 15:40 Sodium 142 mmol/L (136-145) 04/12/23 15:40 Potassium 3.6 mmol/L (3.5-5.1) 04/12/23 15:40 Chloride 101 mmol/L (98-107) 04/12/23 15:40 Carbon Dioxide 28 mmol/L (22-29) 04/12/23 15:40 Anion Gap 16.6 (5-19) 04/12/23 15:40 BUN 13 mg/dL (8-23) 04/12/23 15:40 Creatinine 0.7 mg/dL (0.5-0.9) 04/12/23 15:40 GFR Calculation Not Reportable 04/12/23 15:40 Glucose 238 mg/dL (65-115) H 04/12/23 15:40 Calculated Osmolality 302 mOsm/kg (285-295) H 04/12/23 15:40 Calcium 9.4 mg/dL (8.5-10.5) 04/12/23 15:40 Total Bilirubin 0.4 mg/dL (0.15-1.2) 04/12/23 15:40 AST 13 U/L (0-32) 04/12/23 15:40 ALT 11 U/L (0-33) 04/12/23 15:40 Alkaline Phosphatase 99 U/L (35-105) 04/12/23 15:40 Troponin T Baseline 55 ng/L (0-10) H 04/12/23 15:40 Troponin T 120 Minute 48.91 ng/L (0-10) H 04/12/23 17:37 Delta Troponin T -6.09 ABS# (0-10) L 04/12/23 17:37 Total Protein 6.5 g/dL (6.6-8.7) L 04/12/23 15:40 Albumin 3.8 g/dL (3.5-5.2) 04/12/23 15:40 Globulin 2.7 g/dL (1.3-4.6) 04/12/23 15:40 Urine Color Yellow (Yellow) 04/12/23 17:25 Urine Appearance Cloudy (CLEAR) A 04/12/23 17:25 Urine pH 6 (5-7) 04/12/23 17:25 Ur Specific Citra 1.025 (1.005-1.030) 04/12/23 17:25 Urine Protein Neg (Negative) 04/12/23 17:25 Urine Glucose (UA) Trace (Normal) H 04/12/23 17:25 Urine Ketones Negative (Negative) 04/12/23 17:25 Urine Blood Neg (Negative) 04/12/23 17:25 Urine Nitrate Negative (Negative) 04/12/23 17:25 Urine Bilirubin Neg (Negative) 04/12/23 17:25 Urine Urobilinogen Norm mg/dL (Negative) 04/12/23 17:25 Ur Leukocyte Esterase 1+ (Negative) H 04/12/23 17:25 Urine RBC 0-4 /hpf (0-2) H 04/12/23 17:25 Urine WBC 5-10 /hpf (0-5) H 04/12/23 17:25 Ur Squamous Epith Cells 5-10 /hpf (0-5) H 04/12/23 17:25 Amorphous Sediment Trace /hpf 04/12/23 17:25 Urine Bacteria 1+ /hpf (NONE) H 04/12/23 17:25 Hyaline Casts 0-4 /lpf H 04/12/23 17:25 Urine Mucus 1+ /hpf 04/12/23 17:25 Discharge Plan Discharge Patient Disposition: Home Clinical Impression: Vertigo Condition: Stable Prescriptions: New Antivert 50 mg tablet 50 mg PO BID PRN (Reason: dizziness) Qty: 14 0RF No Action docusate sodium 100 mg capsule 100 - 200 mg PO DAILY PRN (Reason: Constipation) zinc gluconate 50 mg tablet 50 mg PO DAILY cholecalciferol (vitamin D3) 25 mcg (1,000 unit) capsule 25 mcg PO DAILY furosemide 20 mg tablet 20 mg PO DAILY PRN (Reason: edema) Qty: 30 4RF aspirin 81 mg tablet,delayed release (DR/EC) 81 mg PO DAILY nitroglycerin 0.4 mg tablet, sublingual 0.4 mg sublingual Q5M PRN (Reason: Chest Pain) Rx Instructions: do not exceed 3 doses per episode atorvastatin 80 mg tablet 80 mg PO DAILY Januvia 100 mg tablet 100 mg PO DAILY hydrochlorothiazide 50 mg tablet 25 mg PO DAILY Zachaglalexis Pollard U-100 Insulin 100 unit/mL (3 mL) insulin pen 20 unit SUBCUT .qpm levothyroxine 100 mcg tablet 112 mcg PO DAILY valsartan 160 mg tablet 160 mg PO BID Qty: 180 3RF metoprolol tartrate 25 mg tablet 25 mg PO BID isosorbide mononitrate 30 mg tablet extended release 24 hr 90 mg PO DIRECTED Qty: 270 3RF Rx Instructions: Take 60mg (2 tabs) in AM and 30mg (1 tab) in PM albuterol sulfate 90 mcg/actuation HFA aerosol inhaler 1 - 2 puff INHALATION Q4H PRN (Reason: Shortness Of Breath Or Wheezing) amoxicillin-pot clavulanate 875-125 mg tablet 1 tab PO BID Qty: 20 0RF Discharge Orders: Discharge ED (Routine); Ordered 04/12/23 Ordered By: Ileana Wakefield Referrals: Starr Aguilar [Primary Care Provider] - 1-3 days Discharge Diet: Advance as tolerated Discharge Activity: Resume usual activity Patient Instructions: Vertigo (ED), Dizziness (ED) Coding Level of Care Code ED Contract Administration Manager for Terrell Arceo
[2023-04-12 16:26] LABS: Basophils # 0.1 10^3/uL (0.0-0.1); Basophils % 0.6 %; Eosinophils # 0.2 10^3/uL (0.0-0.8); Eosinophils % 1.2 %; Hematocrit 48.1 % (37.0-47.0); Hemoglobin 15.2 g/dL (11.5-15.3); Lymphocytes # 2.3 10^3/uL (0.8-4.8); Lymphocytes % 17.6 %; Mean Corpuscular HGB Conc 31.6 g/dL (30.0-36.0); Mean Corpuscular Hemoglobin 27.5 pg (28.0-34.0); Mean Platelet Volume 11.3 fL (7.4-10.4); Monocytes # 0.9 10^3/uL (0.2-0.9); Monocytes % 6.5 %; Neutrophils # 9.63 10^3/uL (1.8-7.7); Neutrophils % 72.7 %; Nucleated Red Blood Cells % 0 %; Platelet Count 264 10^3/cmm (130-400); Red Blood Count 5.53 10^6/uL (4.1-5.3); Red Cell Distribution Width 13.5 % (12.1-15.1); White Blood Count 13.3 10^3/uL (4.0-10.0)
--- NOTE | 2023-04-12 16:35 | ECG_ITS ---
[facility] Test Date: 2023-04-12 Pat Name: Lenny Myers Department: Room: Gender: Female [employer] Official: : 1945 Requested By: Alek Reece Order Number: [id number] Tian[place] MD: Aria Hamlin M.D. Measurements Intervals [place] Rate: 58 P: 62 AR: 146 QRS: -7 QRSD: 115 T: 91 QT: 407 QTc: 403 Interpretive Statements SINUS BRADYCARDIA POSSIBLE LEFT ATRIAL ENLARGEMENT [-0.1mV P-WAVE IN V1/V2] PROBABLE INFERIOR MYOCARDIAL INFARCTION , OF INDETERMINATE AGE [35 ms Q WAVE IN II/aVF] Compared to ECG 12/16/2022 14:41:41 Sinus rhythm no longer present Left-axis deviation no longer present Left ventricular hypertrophy no longer present ST (T wave) deviation no longer present Myocardial infarct finding still present Electronically Signed On 04-12-2023 17:01:07 CDT by Aria Hamlin M.D. [id number]
[2023-04-12 16:37] LABS: Alanine Aminotransferase 11 U/L (0-33); Albumin Level 3.8 g/dL (3.5-5.2); Alkaline Phosphatase 99 U/L (35-105); Anion Gap 16.6 (5-19); Aspartate Amino Transferase 13 U/L (0-32); Blood Urea Nitrogen 13 mg/dL (8-23); Calcium 9.4 mg/dL (8.5-10.5); Carbon Dioxide 28 mmol/L (22-29); Chloride 101 mmol/L (98-107); Globulin 2.7 g/dL (1.3-4.6); Glucose 238 mg/dL (65-115); Osmolality Calculated 302 mOsm/kg (285-295); Potassium 3.6 mmol/L (3.5-5.1); Sodium 142 mmol/L (136-145); Total Bilirubin 0.4 mg/dL (0.15-1.2); Total Protein 6.5 g/dL (6.6-8.7)
[2023-04-12 16:52] LABS: Troponin(5th) Baseline 55 ng/L (0-10)
[2023-04-12] MEDS: LORazepam 2 mg/mL INJ 1 mL 1 MG IVP (17:10)
[2023-04-12 17:40] LABS: Add Urine Microscopic? YES; Bilirubin Urine Neg (Negative); Blood Urine Neg (Negative); Glucose Urine UA Trace (Normal); Ketones Urine Negative (Negative); Leukocyte Esterase Urine 1+ (Negative); Nitrate Urine Negative (Negative); Protein Urine Neg (Negative); Specific Gravity, Urine 1.025 (1.005-1.030); Urine Appearance Cloudy (CLEAR); Urine Color Yellow (Yellow); Urobilinogen Urine Norm (Negative); pH Urine 6 (5-7)
[2023-04-12 17:45] LABS: Amorphous Sediment Urine TRACE /hpf; Bacteria Urine 1+ /hpf; Hyaline Casts Urine 0-4 /lpf; Mucus Urine 1+ /hpf; RBC Urine 0-4 /hpf (0-2)
[2023-04-12 17:46] LABS: Add Urine Culture? No
[2023-04-12 18:15] LABS: Troponin 5 2HR 48.91 ng/L (0-10)
--- NOTE | 2023-04-12 18:22 | CTR_ITS ---
PROCEDURE INFORMATION: Exam: CTA Head Without And With Contrast, Arteriography Exam date and time: 04/12/2023 7:24 PM Age: 77 years old Clinical indication: Dizziness and giddiness; Additional info: Sudden onset dizziness TECHNIQUE: Imaging protocol: Computed tomographic angiography of the head without and with contrast. Exam focused on the arteries. 3D rendering (Not supervised by radiologist): MIP and/or 3D reconstructed images were created by the technologist. Radiation optimization: All CT scans at this facility use at least one of these dose optimization techniques: automated exposure control; mA and/or kV adjustment per patient size (includes targeted exams where dose is matched to clinical indication); or iterative reconstruction. Contrast material: OMNI 350; Contrast volume: 100 ml; Contrast route: INTRAVENOUS (IV); REPORTING DATA: Count of CT and Cardiac NM exams in prior 12 months: This patient has received [address] and 0 known cardiac nuclear medicine studies in the 12 months prior to the current study. COMPARISON: CT angio headneck* [id number] 12/16/2022 1:07 PM RADIATION DOSE METRICS: Total DLP (mGy-cm): 1006.92 FINDINGS: ANTERIOR CIRCULATION: Right internal carotid artery: Intracranial segment is patent with no significant stenosis or occlusion. No aneurysm. Right middle cerebral artery: No occlusion or significant stenosis. No aneurysm. Right anterior cerebral artery: No occlusion or significant stenosis. No aneurysm. Left internal carotid artery: Intracranial segment is patent with no significant stenosis. No aneurysm. Left middle cerebral artery: No occlusion or significant stenosis. No aneurysm. Left anterior cerebral artery: No occlusion or significant stenosis. No aneurysm. POSTERIOR CIRCULATION: Right vertebral artery: No occlusion or significant stenosis. No aneurysm. Left vertebral artery: No occlusion or significant stenosis. No aneurysm. Basilar artery: No occlusion or significant stenosis. No aneurysm. Right posterior cerebral artery: No occlusion or significant stenosis. No aneurysm. Left posterior cerebral artery: origin of left posterior cerebral artery. HEAD: Brain: Chronic lacunar infarcts in bilateral basal ganglia. Cerebral ventricles: Normal. No ventriculomegaly. Bones/joints: Unremarkable. No acute fracture. Paranasal sinuses: Visualized sinuses are normal. No fluid levels. Mastoid air cells: Visualized mastoids are normal. No mastoid effusion. Soft tissues: Unremarkable. PROCEDURE INFORMATION: Exam: CTA Neck Without And With Contrast Exam date and time: 04/12/2023 7:24 PM Age: 77 years old Clinical indication: Dizziness and giddiness; Additional info: Sudden onset dizziness TECHNIQUE: Imaging protocol: Computed tomographic angiography of the neck without and with contrast. 3D rendering (Not supervised by radiologist): MIP and/or 3D reconstructed images were created by the technologist. Radiation optimization: All CT scans at this facility use at least one of these dose optimization techniques: automated exposure control; mA and/or kV adjustment per patient size (includes targeted exams where dose is matched to clinical indication); or iterative reconstruction. Contrast material: OMNI 350; Contrast volume: 100 ml; Contrast route: INTRAVENOUS (IV); REPORTING DATA: Count of CT and Cardiac NM exams in prior 12 months: This patient has received [address] and 0 known cardiac nuclear medicine studies in the 12 months prior to the current study. COMPARISON: CT angio headneck* [id number] 12/16/2022 1:07 PM RADIATION DOSE METRICS: Total DLP (mGy-cm): 1006.92 FINDINGS: Right common carotid artery: No stenosis. No dissection or occlusion. Right internal carotid artery: No stenosis of the extracranial segment. No dissection or occlusion. Right external carotid artery: No occlusion or stenosis of the origin. Left common carotid artery: No stenosis. No dissection or occlusion. Left internal carotid artery: No stenosis of the extracranial segment. No dissection or occlusion. Left external carotid artery: No occlusion or stenosis of the origin. Right vertebral artery: No stenosis. No dissection or occlusion. Left vertebral artery: No stenosis. No dissection or occlusion. Aorta: Atherosclerotic calcification of the aortic arch. Soft tissues: Normal. No significant soft tissue swelling. Bones/joints: No acute fracture. Lungs: Emphysematous changes in the visualized lung apices. CT/CT angio headne* [id number] IMPRESSION: No significant stenosis or occlusion of intracranial arteries. IMPRESSION: No significant stenosis or occlusion of neck arteries. REFERENCES: NASCET CRITERIA. The degree of stenosis in the cervical segment of the internal carotid artery is based on NASCET criteria. Normal is no stenosis. Mild is less than 50% stenosis. Moderate is 50-69% stenosis. Severe is 70% to 99% stenosis. Total occlusion is no detectable patent lumen.
[2023-04-12 18:24] LABS: Troponin 5 2HR Delta -6.09 ABS# (0-10)
--- NOTE | 2023-04-12 18:27 | ECG_ITS ---
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 Measurements Intervals [place] Rate: 59 P: 55 OK: 142 QRS: -16 QRSD: 120 T: 95 QT: 417 QTc: 414 Interpretive Statements SINUS BRADYCARDIA POSSIBLE LEFT ATRIAL ENLARGEMENT [-0.1mV P-WAVE IN V1/V2] INFERIOR MYOCARDIAL INFARCTION , OF INDETERMINATE AGE [40+ ms Q WAVE AND/OR ST/T ABNORMALITY IN II/aVF] Compared to ECG 04/12/2023 16:35:26 No significant changes Electronically Signed On 04-13-2023 14:52:36 CDT by Braxton Abrams M.D. [email or web address]
[2023-04-12] MEDS: iohexol 350 mg/mL 500 mL Btl (per mL) IV (19:32)
== END 2023-04-12 22:24 | disposition home or self-care (01) ==
PROVIDERS: Family Medicine; Emergency Provider Emergency Medicine; PCP Nurse Practitioner Family
DX: R42 Dizziness and giddiness (principal); Z79.899 Other long term (current) drug therapy
CPT/HCPCS: 70450; 70496; 70498; 71045; 80053; 81001; 84484; 85025; 93005; 96374; 99285; J2060; Q9967